=== PATIENT | female | born 1995 | race Caucasian/White ===

== ENCOUNTER 2017-08-22 19:54 | Emergency (ER) | payer BC, OTHER ==
[~2017-08-22] VITALS: Ht 160 cm; Wt 55.6 kg
[2017-08-22 20:42] LABS: BASOPHILS # (AUTO) 0.02 x10^3/uL (0-0.1); BASOPHILS % (AUTO) 0 % (0-1); EOSINOPHILS # (AUTO) 0.05 x10^3/uL (0-0.4); EOSINOPHILS % (AUTO) 1 % (1-7); LYMPHOCYTES % (AUTO) 37 % (22-44); MD NO; MEAN CORPUSCULAR HEMOGLOBIN 29.3 pg (27.0-34.8); MEAN CORPUSCULAR HGB CONC 33.8 g/dL (32.4-35.8); MEAN CORPUSCULAR VOLUME 86.5 fL (80-100); MONOCYTES % (AUTO) 9 % (2-9); NEUTROPHILS % (AUTO) 53 % (42-75); PLATELET COUNT 259 x10^3/uL (130-400); RED BLOOD COUNT 4.34 x10^6/uL (3.82-5.3); RED CELL DISTRIBUTION WIDTH 14.1 % (9.6-15.2)
[2017-08-22 20:53] LABS: ANION GAP 7 mmol/L (5-15); CALCIUM 8.7 mg/dL (8.5-10.1); CHLORIDE 107 mmol/L (98-107)
[2017-08-22 21:11] LABS: CREATININE 0.78 mg/dL (0.55-1.02)
[2017-08-22 21:13] LABS: MICROSCOPIC NOT IND
[2017-08-22 21:18] LABS: CULTURE INDICATED? NO
[2017-08-22 22:05] VITALS: BP 142/87
== END 2017-08-22 22:07 | disposition home or self-care (01) ==
LOC: ED 22:00
DX: O20.0 Threatened abortion (principal); Z3A.01 Less than 8 weeks gestation of pregnancy
CPT/HCPCS: 36415; 76801; 80048; 81003; 82040; 84702; 85025; 86901; 99285

== ENCOUNTER 2017-08-25 12:17 | Emergency (ER) | payer OTHER ==
[~2017-08-25] VITALS: Ht 160 cm; Wt 54.9 kg
[2017-08-25 12:33] VITALS: BP 144/82
[2017-08-25] MEDS ORDERED: PREN-3 PO (13:05)
[2017-08-25 13:30] LABS: BASOPHILS # (AUTO) 0.04 x10^3/uL (0-0.1); BASOPHILS % (AUTO) 1 % (0-1); EOSINOPHILS # (AUTO) 0.07 x10^3/uL (0-0.4); EOSINOPHILS % (AUTO) 2 % (1-7); LYMPHOCYTES # (AUTO) 1.77 x10^3/uL (1-3.4); LYMPHOCYTES % (AUTO) 37 % (22-44); MD NO; MEAN CORPUSCULAR HEMOGLOBIN 28.9 pg (27.0-34.8); MONOCYTES # (AUTO) 0.39 x10^3/uL (0.2-0.8); MONOCYTES % (AUTO) 8 % (2-9); NEUTROPHILS # (AUTO) 2.49 x10^3/uL (1.8-6.8); NEUTROPHILS % (AUTO) 52 % (42-75); PLATELET COUNT 245 x10^3/uL (130-400); RED BLOOD COUNT 4.68 x10^6/uL (3.82-5.3); RED CELL DISTRIBUTION WIDTH 13.6 % (9.6-15.2)
[2017-08-25 13:41] LABS: ANION GAP 7 mmol/L (5-15); CALCIUM 8.6 mg/dL (8.5-10.1); CHLORIDE 107 mmol/L (98-107); CREATININE 0.74 mg/dL (0.55-1.02)
== END 2017-08-25 15:23 | disposition home or self-care (01) ==
LOC: ED 13:50
DX: O20.0 Threatened abortion (principal); Z3A.01 Less than 8 weeks gestation of pregnancy
CPT/HCPCS: 36415; 76801; 80048; 82040; 84702; 85025; 99285

== ENCOUNTER 2017-08-30 17:41 | Emergency (ER) | payer MEDICAID, OTHER ==
[~2017-08-30] VITALS: Ht 160 cm; Wt 55.4 kg
[~2017-08-30 17:41] MED LIST: PREN-3 PO
[2017-08-30 17:43] VITALS: BP 144/80
[2017-08-30] MEDS ORDERED: SODIUM CHLORIDE FLUSH 10ML SYR IVF ONE (18:00)
[2017-08-30] MEDS ORDERED: SODIUM CHLORIDE 0.9% 1,000ML IVBOLUS ONE (18:00)
[2017-08-30 18:10] LABS: BASOPHILS # (AUTO) 0.02 x10^3/uL (0-0.1); BASOPHILS % (AUTO) 0 % (0-1); EOSINOPHILS # (AUTO) 0.08 x10^3/uL (0-0.4); EOSINOPHILS % (AUTO) 1 % (1-7); LYMPHOCYTES # (AUTO) 2.19 x10^3/uL (1-3.4); LYMPHOCYTES % (AUTO) 36 % (22-44); MD NO; MEAN CORPUSCULAR HGB CONC 33.6 g/dL (32.4-35.8); MEAN CORPUSCULAR VOLUME 86.1 fL (80-100); MONOCYTES # (AUTO) 0.49 x10^3/uL (0.2-0.8); MONOCYTES % (AUTO) 8 % (2-9); NEUTROPHILS # (AUTO) 3.25 x10^3/uL (1.8-6.8); NEUTROPHILS % (AUTO) 54 % (42-75); PLATELET COUNT 277 x10^3/uL (130-400); RED BLOOD COUNT 4.69 x10^6/uL (3.82-5.3); RED CELL DISTRIBUTION WIDTH 14.2 % (9.6-15.2)
[2017-08-30 18:18] LABS: ALANINE AMINOTRANSFERASE 20 U/L (12-78); ALBUMIN 4.3 g/dL (3.4-5.0); ANION GAP 9 mmol/L (5-15); CALCIUM 8.6 mg/dL (8.5-10.1); CHLORIDE 106 mmol/L (98-107); CREATININE 0.79 mg/dL (0.55-1.02)
[2017-08-30 18:35] LABS: ALKALINE PHOSPHATASE 66 U/L (45-117); BILIRUBIN,TOTAL 0.2 mg/dL (0.2-1.0); TOTAL PROTEIN 8.1 g/dL (6.4-8.2)
== END 2017-08-30 22:15 | disposition home or self-care (01) ==
LOC: ED 21:35
DX: O03.4 Incomplete spontaneous abortion without complication (principal)
CPT/HCPCS: 36415; 76801; 80053; 84702; 84703; 85025; 99285

== ENCOUNTER 2017-12-06 16:35 | Emergency (ER) | payer MEDICAID, OTHER ==
[~2017-12-06] VITALS: Ht 160 cm; Wt 54.7 kg
[2017-12-06 16:43] VITALS: BP 137/91
[2017-12-06] MEDS ORDERED: DEXAMETHASONE 4 MG/ML, 5ML ONE (17:18)
[2017-12-06] MEDS ORDERED: DEXAMETHASONE 4 MG TABLET PO ONE (17:30)
== END 2017-12-06 17:28 | disposition home or self-care (01) ==
LOC: ED 17:22
DX: J02.0 Streptococcal pharyngitis (principal)
CPT/HCPCS: 99285

== ENCOUNTER 2020-02-05 12:00 | Outpatient (CLI) | payer BC ==
[~2020-02-05] VITALS: Ht 160 cm; Wt 76.8 kg
[2020-02-05 12:38] VITALS: BP 140/70
[2020-02-05 12:49] LABS: CREATININE,URINE RANDOM 24.7 mg/dL
[2020-02-05 13:00] LABS: MICROSCOPIC INDICATED
[2020-02-05 13:04] LABS: BASOPHILS # (AUTO) 0.02 x10^3/uL (0-0.1); BASOPHILS % (AUTO) 0 % (0-1); EOSINOPHILS # (AUTO) 0.05 x10^3/uL (0-0.4); EOSINOPHILS % (AUTO) 1 % (1-7); LYMPHOCYTES # (AUTO) 1.12 x10^3/uL (1-3.4); LYMPHOCYTES % (AUTO) 15 % (22-44); MD NO; MEAN CORPUSCULAR HEMOGLOBIN 30.1 pg (27.0-34.8); MEAN CORPUSCULAR HGB CONC 33.9 g/dL (32.4-35.8); MEAN CORPUSCULAR VOLUME 88.8 fL (80-100); MEAN PLATELET VOLUME 7.6 fL (7.4-10.4); MONOCYTES # (AUTO) 0.66 x10^3/uL (0.2-0.8); MONOCYTES % (AUTO) 9 % (2-9); NEUTROPHILS # (AUTO) 5.65 x10^3/uL (1.8-6.8); NEUTROPHILS % (AUTO) 75 % (42-75); PLATELET COUNT 221 x10^3/uL (130-400); RED BLOOD COUNT 4.09 x10^6/uL (3.82-5.3); RED CELL DISTRIBUTION WIDTH 13.7 % (9.6-15.2)
[2020-02-05 13:12] LABS: ALBUMIN 2.5 g/dL (3.4-5.0); ANION GAP 7 mmol/L (5-15); CALCIUM 8.7 mg/dL (8.5-10.1); CHLORIDE 110 mmol/L (98-107)
[2020-02-05 13:13] LABS: BILIRUBIN, DIRECT < 0.1 mg/dL (0.1-0.2)
[2020-02-05 13:15] LABS: ALANINE AMINOTRANSFERASE 26 U/L (12-78); ALKALINE PHOSPHATASE 266 U/L (45-117); BILIRUBIN,TOTAL 0.3 mg/dL (0.2-1.0); CREATININE 0.84 mg/dL (0.55-1.02); TOTAL PROTEIN 6.6 g/dL (6.4-8.2)
== END 2020-02-05 13:54 | disposition home or self-care (01) ==
LOC: LDOP 12:00
PROVIDERS: ATTEND Obstetrics & Gynecology
DX: O13.3 Gestational [pregnancy-induced] hypertension without significant proteinuria, third trimester (principal); Z3A.38 38 weeks gestation of pregnancy
CPT/HCPCS: 36415; 59025; 80053; 81001; 82248; 82570; 84156; 84550; 85025; 99211; G0463

== ENCOUNTER 2020-02-11 06:28 | Inpatient (IN) | payer BC ==
[~2020-02-11] VITALS: Ht 160 cm; Wt 76.8 kg
[2020-02-11] MEDS ORDERED: D5%-LACTATED RINGERS 1,000 ML IV SCH (07:02)
[2020-02-11] MEDS ORDERED: OXYTOCIN 30U/ 0.9% NaCL 500ML 500 ML IV ONE (07:02)
[2020-02-11] MEDS ORDERED: LACTATED RINGERS 1,000 ML IV SCH ×4 (07:02→10:24)
[2020-02-11] MEDS ORDERED: LIDOCAINE 1%, 20ML ONE ×2 (07:26→09:27)
[2020-02-11] MEDS ORDERED: OXYTOCIN 30U/ 0.9% NaCL 500ML 500 ML ONE (07:26)
[2020-02-11] MEDS ORDERED: NEWBORN KIT ONE (07:26)
[2020-02-11 07:30] LABS: BASOPHILS # (AUTO) 0.01 x10^3/uL (0-0.1); BASOPHILS % (AUTO) 0 % (0-1); EOSINOPHILS # (AUTO) 0.06 x10^3/uL (0-0.4); EOSINOPHILS % (AUTO) 1 % (1-7); LYMPHOCYTES # (AUTO) 1.34 x10^3/uL (1-3.4); LYMPHOCYTES % (AUTO) 18 % (22-44); MD NO; MEAN CORPUSCULAR HEMOGLOBIN 29.4 pg (27.0-34.8); MEAN CORPUSCULAR HGB CONC 32.7 g/dL (32.4-35.8); MEAN PLATELET VOLUME 7.4 fL (7.4-10.4); MONOCYTES # (AUTO) 0.59 x10^3/uL (0.2-0.8); MONOCYTES % (AUTO) 8 % (2-9); NEUTROPHILS # (AUTO) 5.56 x10^3/uL (1.8-6.8); NEUTROPHILS % (AUTO) 74 % (42-75); PLATELET COUNT 194 x10^3/uL (130-400); RED CELL DISTRIBUTION WIDTH 14.1 % (9.6-15.2)
[2020-02-11] MEDS ORDERED: FENTANYL PF 100 MCG/2ML IVPush PRN (07:30)
[2020-02-11] MEDS ORDERED: PLEASE ENTER HEIGHT AND WEIGHT MC SCH (07:30)
[2020-02-11] MEDS ORDERED: SODIUM CITRATE/CITRIC ACID 30 ML UDC PO PRN (07:30)
[2020-02-11] MEDS ORDERED: TERBUTALINE 1 MG/ML, 1ML SQ PRN (07:30)
[2020-02-11] MEDS ORDERED: METOCLOPRAMIDE 5 MG/ML, 2ML IVPush PRN (07:30)
[2020-02-11] MEDS ORDERED: TERBUTALINE 1 MG/ML, 1ML IVPush PRN (07:30)
[2020-02-11] MEDS ORDERED: FENTANYL PF 100 MCG/2ML IV PRN (07:30)
[2020-02-11] MEDS ORDERED: ONDANSETRON 2MG/ML, 2ML IVPush PRN (07:30)
[2020-02-11 08:12] VITALS: BP 133/94
[2020-02-11 08:37] LABS: MICROSCOPIC INDICATED
[2020-02-11 08:41] LABS: ALANINE AMINOTRANSFERASE 20 U/L (12-78); ALBUMIN 2.5 g/dL (3.4-5.0); ANION GAP 8 mmol/L (5-15); CALCIUM 8.8 mg/dL (8.5-10.1); CHLORIDE 107 mmol/L (98-107); CREATININE 0.82 mg/dL (0.55-1.02)
[2020-02-11 08:43] LABS: ALKALINE PHOSPHATASE 289 U/L (45-117); BILIRUBIN,TOTAL 0.3 mg/dL (0.2-1.0); TOTAL PROTEIN 6.7 g/dL (6.4-8.2)
[2020-02-11 08:43] LABS: CREATININE,URINE RANDOM 22.3 mg/dL
[2020-02-11] MEDS ORDERED: FENTANYL/BUPIV./NS/PF 250 ML EPIDCONT SCH ×2 (08:55→10:13)
[2020-02-11] MEDS ORDERED: EPHEDRINE 50 MG/ML, 1ML IVPush PRN ×2 (09:00→10:30)
[2020-02-11] MEDS ORDERED: LACTATED RINGERS 1,000 ML IVBOLUS PRN ×2 (09:00→10:30)
[2020-02-11] MEDS ORDERED: FENTANYL/BUPIV./NS/PF 250 ML EPIDCONT ONE ×2 (09:25→09:27)
[2020-02-11] MEDS ORDERED: LIDOCAINE PF 2%, 5ML ONE ×2 (09:27→12:35)
[2020-02-11] MEDS ORDERED: LIDOCAINE/PF 1.5%-EPI 1:200K, 30ML ONE (09:27)
[2020-02-11] MEDS ORDERED: OXYTOCIN 30U/ 0.9% NaCL 500ML 500 ML IV PRN (09:41)
[2020-02-11] MEDS ORDERED: SODIUM CITRATE/CITRIC ACID 30 ML UDC ONE (10:27)
[2020-02-11] MEDS ORDERED: METOCLOPRAMIDE 5 MG/ML, 2ML ONE (10:27)
[2020-02-11] MEDS ORDERED: METOCLOPRAMIDE 5 MG/ML, 2ML IV ONE (10:30)
[2020-02-11] MEDS ORDERED: LACTATED RINGERS 1,000 ML IVBOLUS ONE (10:30)
[2020-02-11] MEDS ORDERED: ONDANSETRON 2MG/ML, 2ML IVPush ONE (10:30)
[2020-02-11] MEDS ORDERED: SODIUM CITRATE/CITRIC ACID 30 ML UDC PO ONE (10:30)
[2020-02-11] MEDS ORDERED: NALOXONE 0.4 MG/ML, 1ML IVPush PRN (10:30)
[2020-02-11] MEDS ORDERED: OXYTOCIN 10 UNITS/ML, 1ML ONE (12:35)
[2020-02-11] MEDS ORDERED: CEFAZOLIN 1,000 MG ONE (12:35)
[2020-02-11] MEDS ORDERED: FENTANYL PF 250 MCG/5ML ONE (12:49)
[2020-02-11] MEDS: OXYTOCIN 30U/ 0.9% NaCL 500ML 500 ML IV SCH ×2 (13:32→23:32)
[2020-02-11] MEDS: LACTATED RINGERS 1,000 ML IV SCH ×2 (14:00→22:00)
[2020-02-11] MEDS ORDERED: MEPERIDINE/PF 25MG/0.5ML IM PRN (14:00)
[2020-02-11] MEDS ORDERED: morphine SULFATE 10 MG/ML, 1ML IVPush PRN (14:00)
[2020-02-11] MEDS ORDERED: CARBOPROST TROMETHAMINE 250 MCG/ML, 1ML IM PRN (14:00)
[2020-02-11] MEDS ORDERED: ONDANSETRON 2MG/ML, 2ML IV PRN (14:00)
[2020-02-11] MEDS ORDERED: METOCLOPRAMIDE 5 MG/ML, 2ML IV PRN (14:00)
[2020-02-11] MEDS ORDERED: OXYcodone/APAP 5/325MG TABLET PO PRN (14:00)
[2020-02-11] MEDS ORDERED: MEPERIDINE/PF 50 MG/ML IM PRN (14:00)
[2020-02-11] MEDS ORDERED: IBUPROFEN 600 MG TABLET PO PRN (14:00)
[2020-02-11] MEDS ORDERED: METHYLERGONOVINE 0.2 MG/ML IM PRN (14:00)
[2020-02-11] MEDS ORDERED: SIMETHICONE 80 MG CHEW TAB PO PRN (14:00)
[2020-02-11] MEDS ORDERED: MISOPROSTOL 200 MCG TABLET PR PRN (14:00)
[2020-02-11] MEDS ORDERED: TRANEXAMIC ACID 100 MG/ML, 10ML IV ONE (14:00)
[2020-02-11] MEDS ORDERED: CALCIUM CARBONATE 500 MG TAB.CHEW PO PRN (14:00)
[2020-02-11] MEDS: KETOROLAC 30 MG/1 ML IV SCH ×2 (14:00→19:34)
[2020-02-11] MEDS ORDERED: morphine SULFATE 10 MG/ML, 1ML IV PRN (14:00)
[2020-02-11] MEDS ORDERED: TRANEXAMIC ACID 1,000 MG in SODIUM CHLORIDE 0.9% 100 ML IVPB ONE (15:00)
[2020-02-11 15:40] VITALS: BP 147/88
[2020-02-11] MEDS: OXYcodone/APAP 5/325MG TABLET PO PRN ×2 (17:44→22:43)
[2020-02-11] MEDS: DOCUSATE 100 MG CAPSULE PO PRN (19:44)
[2020-02-11 20:31] VITALS: BP 120/86
[2020-02-11 21:16] LABS: MEAN CORPUSCULAR HGB CONC 33.2 g/dL (32.4-35.8); MEAN PLATELET VOLUME 7.4 fL (7.4-10.4); PLATELET COUNT 178 x10^3/uL (130-400); RED BLOOD COUNT 3.75 x10^6/uL (3.82-5.3); RED CELL DISTRIBUTION WIDTH 13.9 % (9.6-15.2)
[2020-02-11 21:57] LABS: BASOPHILS # (AUTO) 0.06 x10^3/uL (0-0.1); BASOPHILS % (AUTO) 1 % (0-1); EOSINOPHILS # (AUTO) 0.01 x10^3/uL (0-0.4); EOSINOPHILS % (AUTO) 0 % (1-7); LYMPHOCYTES # (AUTO) 1.26 x10^3/uL (1-3.4); LYMPHOCYTES % (AUTO) 12 % (22-44); MD SCAN; MONOCYTES # (AUTO) 0.61 x10^3/uL (0.2-0.8); MONOCYTES % (AUTO) 6 % (2-9); NEUTROPHILS # (AUTO) 8.19 x10^3/uL (1.8-6.8); NEUTROPHILS % (AUTO) 81 % (42-75)
[2020-02-12] VITALS: BP 122/67
[2020-02-12] MEDS: KETOROLAC 30 MG/1 ML IV SCH ×4 (01:37→22:00)
[2020-02-12 04:00] VITALS: BP 138/70
[2020-02-12] MEDS: LACTATED RINGERS 1,000 ML IV SCH ×3 (06:00→22:00)
[2020-02-12 08:00] VITALS: BP 136/83
[2020-02-12] MEDS: PRENATAL VIT/IRON/FA 1 EACH TABLET PO SCH (08:29)
[2020-02-12] MEDS: DOCUSATE 100 MG CAPSULE PO PRN (08:29)
[2020-02-12] MEDS: OXYTOCIN 30U/ 0.9% NaCL 500ML 500 ML IV SCH ×2 (09:32→19:32)
[2020-02-12 12:40] VITALS: BP 143/77
[2020-02-12 21:30] VITALS: BP 151/90
[2020-02-12] MEDS: OXYcodone/APAP 5/325MG TABLET PO PRN (22:00)
[2020-02-12 23:15] VITALS: BP 145/87
[2020-02-13] MEDS: KETOROLAC 30 MG/1 ML IV SCH ×2 (03:25→09:33)
[2020-02-13 03:29] VITALS: BP 147/99
[2020-02-13] MEDS: OXYTOCIN 30U/ 0.9% NaCL 500ML 500 ML IV SCH (05:32)
[2020-02-13 08:10] VITALS: BP 144/91
[2020-02-13] MEDS: PRENATAL VIT/IRON/FA 1 EACH TABLET PO SCH (09:33)
[2020-02-13] MEDS: DOCUSATE 100 MG CAPSULE PO PRN (09:33)
[2020-02-13] MEDS ORDERED: MEASLES,MUMPS&RUBELLA VACC/PF 0.5 ML SQ-VACC ONE ×2 (10:14→11:00)
[2020-02-13] MEDS ORDERED: IBUPROFEN 600 MG TABLET PO PRN (14:00)
[2020-02-13] MEDS ORDERED: OXYC-302 PO (16:15)
[2020-02-13] MEDS ORDERED: DOCU-131 PO (16:15)
[2020-02-13] MEDS ORDERED: IBUP-1222 PO (16:15)
[2020-02-13] MEDS: OXYcodone/APAP 5/325MG TABLET PO PRN (16:46)
== END 2020-02-13 17:30 | disposition home or self-care (01) | DRG 788 ==
LOC: LDIP 06:28 → 2NW 15:35
PROVIDERS: ADMIT Obstetrics & Gynecology; ATTEND Obstetrics & Gynecology
PROC: 10D00Z1 Extraction of Products of Conception, Low, Open Approach (ICD-10-PCS; principal; 2020-02-11)
DX: O32.1XX0 Maternal care for breech presentation, not applicable or unspecified (principal); Z3A.39 39 weeks gestation of pregnancy; Z37.0 Single live birth; Z20.828 Contact with and (suspected) exposure to other viral communicable diseases
CPT/HCPCS: 36415; J3490; 80053; 81001; 82570; 82803; 84156; 84550; 85025; 86592; 86850; 86900; 87635; G0378; J0690; J1885; J3010; J2590; J2765; J7120

== ENCOUNTER 2021-01-24 04:18 | Emergency (ER) | payer OTHER, BC ==
[~2021-01-24] VITALS: Ht 160 cm; Wt 59.1 kg
[~2021-01-24 04:18] MED LIST changes: +DOCU-131 PO; +IBUP-1222 PO; +OXYC1TAB14 PO
[2021-01-24] MEDS ORDERED: SODIUM CHLORIDE 0.9% 1,000ML IVBOLUS ONE (05:30)
[2021-01-24] MEDS ORDERED: SODIUM CHLORIDE FLUSH 10ML SYR IVF ONE (05:30)
--- NOTE | 2021-01-24 05:35 | NUR ---
CC OF ACUTE ONSET OF DIZZYNESS THAT STARTED AT END OF HER WORK SHIFT. PT STATES THE LAST TIME SHE EXPERIENCED DIZZYNESS LIKE THIS SHE WAS WHICH WAS OVER A YEAR AGO. HR VARIED BETWEEN 100-120 DEPENDING ON IF PT IS DIZZY OR NOT.
[2021-01-24 05:52] LABS: BASOPHILS % (AUTO) 0 % (0-1); EOSINOPHILS % (AUTO) 1 % (1-7); LYMPHOCYTES % (AUTO) 32 % (22-44); MEAN CORPUSCULAR HEMOGLOBIN 29.6 pg (27.0-34.8); MEAN CORPUSCULAR HGB CONC 34.4 g/dL (32.4-35.8); MEAN PLATELET VOLUME 7.4 fL (7.4-10.4); MONOCYTES % (AUTO) 7 % (2-9); NEUTROPHILS % (AUTO) 59 % (42-75); PLATELET COUNT 273 x10^3/uL (130-400); RED BLOOD COUNT 4.29 x10^6/uL (3.82-5.3); RED CELL DISTRIBUTION WIDTH 13.6 % (9.6-15.2)
[2021-01-24 06:01] LABS: ALBUMIN 3.8 g/dL (3.4-5.0); ANION GAP 8 mmol/L (5-15); CHLORIDE 108 mmol/L (98-107)
[2021-01-24 06:07] LABS: CREATININE 0.75 mg/dL (0.55-1.02)
--- NOTE | 2021-01-24 06:20 | NUR ---
STATES SHE IS STILL DIZZY INTERMITTENTLY. 1 BOLUS COMPLETED.
[2021-01-24 06:27] VITALS: BP 134/75
[2021-01-24] MEDS ORDERED: POTASSIUM CHLORIDE 20 MEQ TAB.ER.PRT PO ONE (06:30)
[2021-01-24] MEDS ORDERED: POTASSIUM CHLORIDE 20 MEQ TAB.ER.PRT ONE (06:36)
[2021-01-24] MEDS ORDERED: MECLIZINE CHEWABLE 25 MG TAB ONE (06:36)
--- NOTE | 2021-01-24 06:45 | NUR ---
REPORT GIVEN SHAY AMOS
--- NOTE | 2021-01-24 06:46 | NUR ---
REPORT FROM BETTE ACHARYA
--- NOTE | 2021-01-24 06:58 | NUR ---
Patient given discharge instructions and they have confirmed that they understand the instructions. Patient ambulatory with steady gait.
[2021-01-24] MEDS ORDERED: MECLIZINE CHEWABLE 25 MG TAB PO ONE (07:00)
== END 2021-01-24 07:40 | disposition home or self-care (01) ==
LOC: ED 05:31
DX: R55 Syncope and collapse (principal)
CPT/HCPCS: 36415; 80048; 82040; 84703; 85025; 93005; 96360; 99284; J7030